=== PATIENT | female | born 1950 | race Caucasian/White ===

== ENCOUNTER 2018-09-12 16:03 | Emergency (ER) | payer MEDICAID, MEDICARE ==
[~2018-09-12] VITALS: Ht 152.4 cm; Wt 84.0 kg
[~2018-09-12 16:03] MED LIST: CYMBALTA; DOXAPIN; HYDROCODONE; IPRA14.7 INH; LISINOPRIL; LYRICA; METOPROLOL; OMEPRAZOLE; PRAVASTATIN; SOMA; TIOT18CA; VESICARE
--- NOTE | 2018-09-12 16:10 | NUR ---
NOT IN [facility]
[2018-09-12 16:55] VITALS: BP 141/70
[2018-09-12] MEDS ORDERED: HYDROcodone/APAP 5/325 TABLET ONE (17:15)
[2018-09-12] MEDS ORDERED: HYDROcodone/APAP 5/325 TABLET PO ONE (17:30)
== END 2018-09-12 17:27 | disposition home or self-care (01) ==
LOC: ED 17:17
DX: K02.9 Dental caries, unspecified (principal); I10 Essential (primary) hypertension
CPT/HCPCS: 99283